=== PATIENT | female | born 1955 | race Caucasian/White ===

== ENCOUNTER 2017-10-20 16:20 | Outpatient (CLI) | payer MEDICARE, BC ==
[2017-10-20 17:35] LABS: Anion Gap 15 mmol/L (10-20); BUN (Urea Nitrogen) 15 mg/dL (9.8-20.1); Calc. Creatinine Clearance 0 mL/min (70-130); Calcium 9.8 mg/dL (7.8-10.44); Carbon Dioxide 25 mmol/L (22-29); Chloride 103 mmol/L (98-107); Estimated GFR-MDRD 52; Glucose 83 mg/dL (70-105); Potassium 3.9 mmol/L (3.5-5.1); Sodium 139 mmol/L (136-145)
[2017-10-20 17:38] LABS: Hemoglobin 12.4 g/dL (12.0-16.0); Mean Corpuscular Hemoglobin 31.3 pg (27.0-31.0); Mean Corpuscular Volume 92.2 fl (81.0-99.0); Mean Platelet Volume 12.2 fL (7.4-10.4); Platelet Count 139 thou/uL (130-400); RBC Distribution Width 12.9 % (11.5-14.5); Red Blood Cell (RBC) Count 3.95 mill/uL (4.20-5.40)
== END 2017-10-20 16:21 | disposition home or self-care (01) ==
LOC: LABBT 16:20
PROVIDERS: ATTEND Thoracic Surgery (Cardiothoracic Vascular Surgery)
DX: Z01.812 Encounter for preprocedural laboratory examination (principal); I73.9 Peripheral vascular disease, unspecified
CPT/HCPCS: 80048; 85027

== ENCOUNTER 2017-10-21 09:52 | Day surgery (SDC) | payer MEDICARE, BC ==
[2017-10-20 16:37] VITALS: BMI 24.9
[2017-10-21] MEDS ORDERED: Lidocaine 1% (PF) 30 ML VIAL ONE (10:24)
[2017-10-21] MEDS ORDERED: Iopamidol 370 76% 50 ML VIAL FS ONE (11:30)
[2017-10-21] MEDS ORDERED: Fentanyl 100 MCG/2 ML VIAL ONE ×2 (11:33→15:02)
[2017-10-21] MEDS ORDERED: Midazolam HCl 2 mg/2 ml Vial ONE (11:34)
[2017-10-21] MEDS ORDERED: Heparin 10,000 UNITS/1 ML VIAL ONE (12:01)
[2017-10-21] MEDS ORDERED: Protamine Sulfate 50 MG/5 ML VIAL ONE (12:10)
[2017-10-21] MEDS ORDERED: Fentanyl 100 MCG/2 ML VIAL SLOW IVP PRN (12:50)
[2017-10-21] MEDS ORDERED: Ondansetron HCl/PF 4 MG/2 ML Vial SLOW IVP PRN (12:50)
--- NOTE | 2017-10-21 13:01 | OP ---
DATE OF PROCEDURE: 10/21/2017 PREOPERATIVE DIAGNOSIS: Peripheral artery disease, right leg. PROCEDURE: Right and left femoral access with aortogram, iliofemoral and bilateral lower extremity r unoff. SURGEON: Dr. David Aviles ANESTHESIA: Sedation, Versed and fentanyl. CONTRAST: 48 mL. FLUOROSCOPY: 5.3 minutes. FINDINGS: The patient had complete occlusion of the right common iliac artery. She had mild atheros clerotic changes in the abdominal aorta below the renal arteries. She had apparent single renal nelson danyelle bilaterally with normal takeoff. Her left common iliac at the site of a previous stent was wide ly patent. The right and left external arteries appeared normal in caliber, although the right was s maller than the left, probably due to lack of pressurization. Both internal iliac arteries were harding nt without obvious disease. The right lower extremity runoff demonstrated normal superficial femoral artery, normal popliteal artery and 3-vessel runoff with some disease in the proximal peroneal arter y. The left leg demonstrated normal superficial femoral, popliteal, and anterior tibial and tibioper yung trunk were visualized and runoff below that level was not obtained. The patient tolerated the procedure well.
== END 2017-10-21 19:00 | disposition home or self-care (01) ==
LOC: CCL 09:52
PROVIDERS: ATTEND Thoracic Surgery (Cardiothoracic Vascular Surgery)
PROC: B40DYZZ Plain Radiography of Aorta and Bilateral Lower Extremity Arteries using Other Contrast (ICD-10-PCS; principal; 2017-10-21)
DX: I73.9 Peripheral vascular disease, unspecified (principal); Z79.01 Long term (current) use of anticoagulants; Z79.82 Long term (current) use of aspirin; Z79.899 Other long term (current) drug therapy; Z88.8 Allergy status to other drugs, medicaments and biological substances
CPT/HCPCS: 36245; 36247; 75625; 75716; 76942; 85347; 96374; C1769 ×2; 99152; 99153; J1644; J2001; J2250; J2720; J3010

== ENCOUNTER 2018-01-09 10:02 | Inpatient (IN) | payer MEDICARE, BC ==
[2018-01-09] MEDS ORDERED: Diltiazem 125 MG in Sodium Chloride 0.9% 100 ML IVPB SCH ×2 (10:30→14:32)
--- NOTE | 2018-01-09 10:38 | RAD ---
CHEST ONE VIEW: History: 62-year-old female with history of atrial fibrillation and syncope. Comparison: 02-25-06, 04-17-08 FINDINGS: Post underlying sternotomy. Right subclavian catheter and injection port. Heart size is within normal limits Minimal patchy parenchymal changes in the left lower lobe, primarily in the retrocardiac joseline on. The right chest appears clear. Patchy lytic changes involving the humeral head, incompletely eval uated on this study, but this is new when compared to the prior and exams. Post op changes of t he lower cervical spine. IMPRESSION: No cardiomegaly or overt edema. Patchy parenchymal changes in the left lower lobe raising concern for pneumonia, pneumonitis or even aspiration. Abnormal right humeral head with some patchy bony deminer alization/lytic bone changes. Consider nonemergent follow up plain film evaluation of the right shoul sudhir. POS: OFF
[2018-01-09] MEDS ORDERED: Piperacillin/Tazobactam 4.5 GM in Sodium Chloride 0.9% 100 ML IVPB SCH (11:00)
[2018-01-09 11:02] LABS: ALT (SGPT) 23 U/L (8-55); AST (SGOT) 26 U/L (5-34); Albumin 3.9 g/dL (3.5-5.0); Alkaline Phosphatase 95 U/L (40-150); Anion Gap 17 mmol/L (10-20); BUN (Urea Nitrogen) 34 mg/dL (9.8-20.1); Bilirubin, Total 0.5 mg/dL (0.2-1.2); CK (CPK) 21 U/L (29-168); Calc. Creatinine Clearance 0 mL/min (70-130); Calcium 9.5 mg/dL (7.8-10.44); Carbon Dioxide 20 mmol/L (22-29); Chloride 108 mmol/L (98-107); Estimated GFR-MDRD 33; Globulin 3.3 g/dL (2.4-3.5); Glucose 101 mg/dL (70-105); Potassium 3.7 mmol/L (3.5-5.1); Protein, Total 7.2 g/dL (6.0-8.3); Sodium 141 mmol/L (136-145)
[2018-01-09 11:05] LABS: Troponin I 0.084 ng/mL (< 0.028)
[2018-01-09 11:08] LABS: Band 12 % (5-11); Hemoglobin 11.7 g/dL (12.0-16.0); Lymphocytes 5 % (21-51); MDiff Complete? YES; Mean Corpuscular HGB CONC 34.2 g/dL (32.0-36.0); Mean Corpuscular Hemoglobin 31.1 pg (27.0-31.0); Mean Corpuscular Volume 90.7 fL (78.0-98.0); Mean Platelet Volume 11.7 fL (7.4-10.4); Monocytes 15 % (0-10); Neutrophil 68 % (42-75); PLT Morphology Comment Appears Decreased; Platelet Count 102 thou/uL (130-400); RBC Distribution Width 13.2 % (11.5-14.5); RBC Morphology Normal; Red Blood Cell (RBC) Count 3.77 mill/uL (4.20-5.40); White Blood Cell (WBC) Count 14.5 thou/uL (4.8-10.8)
--- NOTE | 2018-01-09 11:21 | CT ---
NONCONTRAST CT HEAD: DATE: 01/09/18. HISTORY: Syncope. Atrial fibrillation with RVR. Stage 3 breast cancer undergoing chemotherapy currently. COMPARISON: 02/21/06. FINDINGS: There are subtle scattered low-density areas in the periventricular white matter which are nonspecifi c but likely related to mild chronic small-vessel ischemic changes which have progressed from the leighton or study. There is no evidence of an acute cortical infarction, hemorrhage, mass effect, or midline shift. There is mild cerebral volume loss not unexpected for the patient's age. The ventricular sys tem is normal in size, shape, and position. Calvarial structures have a normal appearance and lytic or sclerotic osseous lesions are seen. There is mild mucosal thickening in the left sphenoid sinus. The remainder of the visualized paranas al sinuses as well as mastoid air cells are clear. IMPRESSION: 1. No acute intracranial abnormality is demonstrated. 2. Sinus disease involving the left sphenoid sinus. POS: [facility]
[2018-01-09 14:27] LABS: Free T4 (Free Thyroxine) 0.91 ng/dL (0.70-1.48)
[2018-01-09] MEDS ORDERED: Ondansetron ODT 4 MG TAB PO PRN (14:32)
[2018-01-09] MEDS ORDERED: Acetaminophen 325 MG TAB PO PRN (14:32)
[2018-01-09] MEDS ORDERED: Loratadine 10 MG TAB PO PRN (14:32)
[2018-01-09] MEDS ORDERED: Milk Of Magnesia 30 ML UDCUP PO PRN (14:32)
[2018-01-09] MEDS ORDERED: HYDROcodone/Acetaminophen 5/325 mg Tablet PO PRN (14:32)
[2018-01-09] MEDS ORDERED: Loperamide HCl 2 MG CAP PO PRN (14:32)
[2018-01-09] MEDS ORDERED: Eucerin (Mineral Oil/Petrolatum,White) 30 gm Jar TOP PRN (14:32)
[2018-01-09] MEDS ORDERED: Zolpidem Tartrate 5 MG TAB PO PRN (14:32)
[2018-01-09] MEDS ORDERED: Chloraseptic Spray 180 ml Bottle PO PRN (14:32)
[2018-01-09] MEDS ORDERED: Sodium Chloride 0.9% 1,000 ML IV SCH ×2 (14:32→14:45)
[2018-01-09] MEDS ORDERED: Artificial Tears 18 DROP/0.9 ML EA EYE PRN (14:32)
[2018-01-09] MEDS ORDERED: Sodium Chloride 0.65% Nasal 44 ML BOT EA NARE PRN (14:32)
[2018-01-09] MEDS ORDERED: cloNIDine 0.1 MG TAB PO PRN (14:32)
[2018-01-09] MEDS ORDERED: Mag-Al 1200 mg/1200 mg/30 ML UDCUP PO PRN (14:32)
[2018-01-09] MEDS ORDERED: Senokot 8.6 MG TAB PO PRN (14:32)
[2018-01-09] MEDS ORDERED: Ondansetron HCl/PF 4 MG/2 ML Vial IVP PRN (14:32)
[2018-01-09] MEDS ORDERED: Diabetic Tussin 200 MG/10 ML UDCUP PO PRN (14:32)
[2018-01-09] MEDS ORDERED: Digoxin 0.5 MG/2 ML AMP SLOW IVP SCH (14:45)
[2018-01-09] MEDS: Sodium Chloride 0.9% 1,000 ML IV SCH ×2 (14:45→23:19)
[2018-01-09 14:50] VITALS: BMI 21.7
[2018-01-09 15:07] LABS: Lactic Acid 1.4 mmol/L (0.5-2.2)
[2018-01-09 15:18] LABS: Troponin I 0.091 ng/mL (< 0.028)
[2018-01-09] MEDS ORDERED: Sodium Chloride 0.9% 500 ML IV SCH (15:30)
[2018-01-09] MEDS ORDERED: Lidocaine Viscous Sol 2% 15 ml UD Cup SSW PRN (15:31)
[2018-01-09] MEDS ORDERED: Multivit, Adult Inj 10 ML VIAL IV SCH (15:45)
[2018-01-09] MEDS ORDERED: Multivitamins, Adult 10 ML in Sodium Chloride 0.9% 1,000 ML IV SCH (17:00)
[2018-01-09] MEDS: Piperacillin/Tazobactam 3.375 GM in Sodium Chloride 0.9% 100 ML IVPB SCH (18:00)
[2018-01-09 18:43] LABS: Troponin I 0.068 ng/mL (< 0.028)
--- NOTE | 2018-01-09 19:02 | HP ---
PRIMARY CARE PHYSICIAN: Urbano Burns MD REASON FOR ADMISSION: Atrial fibrillation with rapid ventricular response, sepsis with acute organ d ysfunction, hypotension. HISTORY OF PRESENT ILLNESS: A 62-year-old female who has underlying history of stage III breast canc er and she is getting chemotherapy. Her primary oncologist is Dr. Den Mejia. Last chemotherapy was 2 weeks ago and the patient is planned for receiving another chemotherapy tomorrow. The patient's hu sband reports that since chemotherapy started, the patient is gradually going downhill. She has very poor appetite. She lost almost 50 pounds over the last 5 months. She gets sore mouth and because o f that she is not able to drink enough liquid as well. She also has very poor appetite. For the t several days, the patient was having cough productive of scant amount of sputum and subsequently ch anged to yellow color. The patient's noticed that the patient was gradually going downhill a nd she was intermittently confused for the last 4-5 days. Mostly, the patient remains at home and th at is why the patient's was not able to take care of her, because he has to go for job most o f the time during daytime, but as the patient's condition was deteriorating and that is why the pat wells's took off from work and he was staying for the last couple of days at home. He was tryin g to bring her in emergency room 3-4 days ago, but the patient was not willing to do that. Last nigh t, the patient woke up in the middle of night and she went to bathroom and she collapsed. The patilillian t's helped her to bring her back to bed. This morning, the patient had another episode of fa ll and that is why the patient's decided that to go to emergency room for evaluation. The jae sosa was not having any fever. She denies any diarrhea. She denies any UTI symptoms, but the pat wells did not make any significant urine output since morning. She denies any palpitation. She denies any chest pain. She denies any orthopnea, PND, or leg swelling. She does have history of COPD and s he is using inhalers. She does have history of atrial fibrillation and she was on chronic anticoagul ation therapy as well as Cartia medication, which she did not took today. When she arrived to emergency room, she was hypotensive as well as in atrial fibrillation with RVR wi th a pulse of 140. She was afebrile. The patient was given IV fluid and Cardizem bolus, and Cardize m drip was started, and subsequently her rate was under control. By the time I saw in ER, patient's rate was in 110s as well as her blood pressure improved to 102 systolic. The patient was saturating 94% on room air and 100% with 2 liter nasal cannula. The patient was given Zosyn and levofloxacin, a nd subsequently the patient was admitted to telemetry floor. After admission to telemetry floor, the patient had an episode of hypotension when she tried to stand up. That responded very quickly with a bolus fluid. We held Cardizem drip and digoxin was given fo r her rapid heart rate. At that time, the patient was asymptomatic. REVIEW OF SYSTEMS: The following complete review of systems was negative, unless otherwise mentioned in the HPI or below: Constitutional: Weight loss or gain, ability to conduct usual activities. Sk in: Rash, itching. Eyes: Double vision, pain. ENT/Mouth: Nose bleeding, neck stiffness, pain, te nderness. Cardiovascular: Palpitations, dyspnea on exertion, orthopnea. Respiratory: Shortness of breath, wheezing, cough, hemoptysis, fever, or night sweats. Gastrointestinal: Poor appetite, abdo chinyere pain, heartburn, nausea, vomiting, constipation, or diarrhea. Genitourinary: Urgency, frequen cy, dysuria, nocturia. Musculoskeletal: Pain, swelling. Neurologic/Psychiatric: Anxiety, depressi on. Allergy/Immunologic: Skin rash, bleeding tendency. Please see my HPI for pertinent positive and negative. All other review of systems reviewed and nega tive except as mentioned in the HPI. PAST MEDICAL HISTORY: Atrial fibrillation, chronic anticoagulation, COPD, stage III breast cancer, p eripheral neuropathy, hypertension, dyslipidemia, fibromyalgia. PAST SURGICAL HISTORY: MediPort placement, CABG x2, angiography of lower extremity with runoff, left fifth toe amputation, right shoulder surgery. PAST PSYCHIATRIC HISTORY: Anxiety disorder, but not on specific medication. SOCIAL HISTORY: The patient is and lives at home with her . She is a former smoker. She quit smoking about 9 months ago, otherwise she used to smoke 1 pack per day for 45 years. FAMILY HISTORY: No strong family history of premature coronary artery disease, stroke, or cancer. ALLERGIES: METOPROLOL and IMDUR. CURRENT HOME MEDICATIONS: The patient did not bring her home medication, but based on our hospital r ecord from 10/2017. The patient was on following medications: Combivent inhaler twice daily, Symbic ort 2 puff inhalation b.i.d., Lyrica 225 mg b.i.d., Lipitor 40 mg p.o. at bedtime, aspirin 81 mg p.o. daily, Eliquis 2.5 mg p.o. b.i.d., omeprazole 40 mg p.o. daily, tizanidine 4 mg p.o. b.i.d., Cartia XT 240 mg p.o. at bedtime. EMERGENCY ROOM COURSE: The patient has received Cardizem bolus, Cardizem drip, Zosyn, levofloxacin, and IV fluid. PHYSICAL EXAMINATION: VITAL SIGNS: On arrival, blood pressure 86/63, pulse 140, respiratory rate 17, temperature 98.5, sat uration 94% on room air. Blood pressure improved to 113/61 after fluid and heart rate improved to 11 0, saturation 100% with 2-liter nasal cannula. GENERAL: The patient appears chronically ill, alopecia, tachycardic, hypotensive, emaciated. HEAD: Normocephalic, atraumatic. EYES: Pupils round, reactive to light. Extraocular muscle intact. ENT: Oropharynx within normal limit. Stomatitis noted. Dry mucous membrane. No oral lesion, no ph aryngeal erythema, no exudate. NECK: Supple. No JVD, no thyromegaly, no meningeal signs of irritation. LUNGS: Left basal rales noted. No accessory muscles of respiration in use. CARDIAC: S1, S2 irregularly irregular. No murmur elicited. No gallop, no rub. ABDOMEN: Soft. Bowel sounds present. Nontender, nondistended. No organomegaly, no mass, no suprap ubic tenderness. BACK: Unremarkable. No CVA tenderness. EXTREMITIES: Upper extremity: Passive movement of all joints are normal. Lower extremity: Trace e sg noted. Good distal pulsation. SKIN: No skin rash. HEMATOLOGICAL SYSTEM: No lymphadenopathy. PSYCHIATRIC: Normal affect. SIGNIFICANT LABORATORY DATA: EKG showing atrial fibrillation with RVR, nonspecific ST-T changes. Ch est x-ray: Left lower lobe infiltration. CT brain based on my review, no acute intracranial process . CBC: WBC 14.5, hemoglobin 11.7, platelet 102 with bandemia. BMP: Sodium 141, potassium 3.7, chl oride 108, carbon dioxide 20, anion gap 17, BUN 34, creatinine 1.58, glucose 101, calcium 9.5. LFT: AST 26, ALT 23, alkaline phosphatase 95, albumin 3.9, CK 21, CK-MB 1.0. Troponin I 0.084, then 0.09 1. TSH is less than 1889. Free T3 less than 1. Free T4 is 0.91. Cortisol is 13.40. ASSESSMENT AND PLAN: 1. Syncope, most likely explained by her hypotension and atrial fibrillation with rapid ventricular response. We will monitor on telemetry floor. We will obtain echocardiography. We will stabilize h emodynamically. 2. Sepsis with acute organ dysfunction. This patient has left lower lobe pneumonia. She has acute kidney failure, demand ischemia of myocardium, and hypotension. The patient is on broad-spectrum ant ibiotic therapy with Zosyn and Levaquin. We will follow up on culture result. The patient will cont inue to get IV fluid as well and based on culture result, we will decide next antibiotic therapy. 3. Acute kidney failure. The patient will be given IV fluid. This is because of prerenal etiology from her poor p.o. intake as well as sepsis. We will avoid nephrotoxin agent and we will repeat BMP tomorrow. 4. Demand ischemia of myocardium, likely related with sepsis as well as atrial fibrillation with rap id ventricular response. We will do serial cardiac enzymes x3. Echocardiography will be done. Aspi rin will be continued. Cardiology already consulted. 5. Atrial fibrillation with rapid ventricular response. The patient's rate was controlled with Card izem drip, but because of low blood pressure, the patient is not going to tolerate that medication. We will give her digoxin 0.25 mg IV one-time dose and then we will repeat if needed. Cardiology will be consulted. Echocardiography will be done. The patient will continue Eliquis 2.5 mg p.o. b.i.d., aspirin 81 mg p.o. daily. If blood pressure permits, then we will continue with the Cardizem drip f or rate control. For further decision, we will defer to Cardiology. 6. Metabolic acidosis due to sepsis and dehydration. 7. Anemia of chronic disease due to breast cancer as well as chemotherapy. We will monitor CBC. 8. Thrombocytopenia likely due to chemotherapy. We will monitor platelet count and because of low p latelet count, we will avoid heparin product. 9. Sick euthyroid syndrome. The patient has low TSH and low free T3, but normal T4. 10. Sepsis with hypotension. The patient is given bolus fluid and blood pressure improved. Random cortisol is in normal level, but we will continue with Solu-Medrol 40 mg IV q.6 hourly. 11. Left lower lobe pneumonia, community acquired. The patient will be given broad-spectrum antibio tic therapy with Zosyn and Levaquin. We will follow up on culture result. The patient will be given DuoNeb therapy on p.r.n. basis. We will continue with Solu-Medrol 40 mg IV q.6 hourly, Mucinex 600 mg twice daily. 12. History of breast cancer. The patient is planned for chemotherapy tomorrow, but she cannot have chemotherapy because of sepsis and atrial fibrillation with rapid ventricular rate. She needs to re schedule outpatient chemotherapy after discharge with Dr. Den Mejia. 13. Chronic obstructive pulmonary disease with mild exacerbation. The patient will be given DuoNeb therapy q.6 hourly p.r.n., Dulera two puff inhalation b.i.d., Solu-Medrol 40 mg IV q.6. hourly, and t he patient is already on empiric antibiotic therapy. 14. Gastroesophageal reflux disease. We will continue Protonix 40 mg p.o. daily. 15. Dyslipidemia. Continue Lipitor 40 mg p.o. at bedtime and we will check lipid profile tomorrow m justin. 16. Peripheral neuropathy. We will continue Lyrica 225 mg p.o. b.i.d. The patient reports that wit hout that medication, she cannot sleep. 17. Deep venous thrombosis prophylaxis. The patient is already on Eliquis therapy. 18. Gastrointestinal prophylaxis, Protonix 40 mg p.o. daily. 19. Stomatitis. We will give her folic acid, vitamin B12, Theragran, as well as multivitamin throug h the IV fluid. 20. Protein-calorie malnutrition, moderate. The patient will need nutritional supplement with Ensur e t.i.d. 21. Coronary artery disease. The patient is already on aspirin therapy, statin therapy. CODE STATUS: The patient is FULL CODE. The patient's is surrogate decision maker. Disposition plan based on clinical course. We are expecting patient's stay in hospital more than 2 m idnights. Plan of care extensively discussed with the patient's at bedside in the emergency room. The patient was also evaluated at the telemetry floor after admission.
[2018-01-09] MEDS: Mometasone/Formoterol 120 PUFF INHALER INH SCH (20:17)
[2018-01-09] MEDS: Pregabalin 75 MG CAP PO SCH (20:37)
[2018-01-09] MEDS: Atorvastatin Calcium 40 MG TAB PO SCH (20:38)
[2018-01-09] MEDS: guaiFENesin ER 600 MG TAB PO SCH (20:39)
[2018-01-09] MEDS ORDERED: Atorvastatin Calcium 40 MG TAB PO SCH (21:00)
[2018-01-09] MEDS: Apixaban 2.5 MG TAB PO SCH (21:50)
[2018-01-10] MEDS: Piperacillin/Tazobactam 3.375 GM in Sodium Chloride 0.9% 100 ML IVPB SCH ×5 (00:20→23:15)
[2018-01-10 06:00] LABS: ALT (SGPT) 20 U/L (8-55); AST (SGOT) 20 U/L (5-34); Albumin 3.1 g/dL (3.5-5.0); Alkaline Phosphatase 80 U/L (40-150); Anion Gap 15 mmol/L (10-20); BUN (Urea Nitrogen) 23 mg/dL (9.8-20.1); Bilirubin, Total 0.4 mg/dL (0.2-1.2); Calc. Creatinine Clearance 48 mL/min (70-130); Calcium 8.6 mg/dL (7.8-10.44); Carbon Dioxide 17 mmol/L (22-29); Chloride 115 mmol/L (98-107); Estimated GFR-MDRD 45; Globulin 2.7 g/dL (2.4-3.5); Glucose 140 mg/dL (70-105); Potassium 4.2 mmol/L (3.5-5.1); Protein, Total 5.8 g/dL (6.0-8.3); Sodium 143 mmol/L (136-145)
[2018-01-10] MEDS ORDERED: Acetaminophen/Codeine 30-300mg Tablet PO PRN (06:04)
[2018-01-10] MEDS ORDERED: Diltiazem 125 MG in Sodium Chloride 0.9% 100 ML IVPB PRN (06:06)
[2018-01-10] MEDS ORDERED: Multivit, Adult Inj 10 ML VIAL IV SCH (06:15)
[2018-01-10] MEDS: Sodium Chloride 0.9% 1,000 ML IV SCH (06:37)
[2018-01-10] MEDS: Dextrose 5 %-0.45 % NaCl 1,000 ML IV SCH (06:42)
[2018-01-10 07:29] LABS: Band 18 % (5-11); Hemoglobin 8.6 g/dL (12.0-16.0); Lymphocytes 3 % (21-51); MDiff Complete? YES; Mean Corpuscular HGB CONC 32.8 g/dL (32.0-36.0); Mean Corpuscular Hemoglobin 30.8 pg (27.0-31.0); Mean Corpuscular Volume 93.8 fL (78.0-98.0); Monocytes 2 % (0-10); Neutrophil 77 % (42-75); PLT Morphology Comment Appears Decreased; Platelet Count 97 thou/uL (130-400); RBC Distribution Width 13.1 % (11.5-14.5); RBC Morphology 1; Red Blood Cell (RBC) Count 2.79 mill/uL (4.20-5.40); White Blood Cell (WBC) Count 11.1 thou/uL (4.8-10.8)
[2018-01-10] MEDS: Mometasone/Formoterol 120 PUFF INHALER INH SCH ×2 (07:58→19:49)
--- NOTE | 2018-01-10 08:46 | CON ---
DATE OF CONSULTATION: 01/09/2018 ROOM NUMBER: [id number] PRIMARY CARE PHYSICIAN: Urbano Burns M.D. ONCOLOGIST: Den Mejia M.D. PRIMARY MANAGED CARE ANALYST: Dr. Leone. The patient's primary sheep killer in [place] is going to be Dr. Marques. REFERRAL DOCTOR: Dr. Owens. REASON FOR CARDIOLOGY CONSULTATION: AFib with RVR. HISTORY OF PRESENT ILLNESS: Ms. Duncan is a 62 years old female with a significant history of left lung cancer in the left stage III breast cancer and since 2018 with chemotherapy, and history of coronary artery disease with a history of a CABG x2, peripheral arterial disease with bilateral lower bypass 07/2017, and paroxysmal atrial fibrillation and COPD. The patient was diagnosed with a left lung cancer and stage III left breast cancer in 2018. She has finished 2 sets of chemotherapy and has almost started her third chemotherapy from tomorrow. Since patient started the chemotherapy, the patient 's condition started deteriorate. The patient's appetite also decreased and she became more weaker. According to the patient, she could not move well since last week. This morning, she fell twice at home. She knew she was falling. Due to those reasons and severe weakness, patient's called the EMS and the patient was transferred to the emergency department at [facility] for further evaluation and treatment. At the ER, the patient was found to have atrial fibrillation with rapid ventricular response with pauses up to 140s. The diltiazem drip was initiated at the ER. At that time, patient's vital signs were stable with O2 sat 94% with room air. When she was tried to get up to the bedside commode, the patient has dizziness and happened to have low blood pressure. After this episode, the patient received normal saline bolus which stabilized the patient's blood pressure at this time. During the Cardiology consult assessment, patient denies dizziness, lightheadedness, palpitation or fluttering in her chest, shortness of breath, chest pain or discomfort in her chest or any other cardiac complaints except the patient severe weakness. The patient converted back to sinus rhythm at 1717 on 01/07/2018. Cardizem drip was discontinued due to the hypotension. At this moment, the patient is on the digoxin. She received the digoxin 0.25mg IV push. She has maintained the sinus rhythm since then. The patient has seen Dr. Leone for history of coronary artery disease and atrial fibrillation. The patient has had several echocardiograms at Dr. Leone' s office; last one was in 2016 per patient. She was told that the patient's ejection fraction was stable at that time. The patient's CABG x2 [place] [address] Aviles and also patient has status post AFRO with runoff with status post bilateral lower extremity bypass in about 5 weeks ago. PAST MEDICAL HISTORY: 1. Paroxysmal atrial fibrillation with Eliquis 5 mg twice a day. 2. Chronic obstructive pulmonary disease. 3. Left lung cancer in stage III. 4. Left breast cancer since 2018. 5. Peripheral neuropathy. 6. Hypertension. 7. Dyslipidemia. 8. Fibromyalgia. PAST SURGICAL HISTORY: 1. CABG x2 in 2006. 2. Also with status post bilateral lower extremity bypass in 10/2017. However , according to Dr. Aviles's note in 10/2017 shows patient has bilateral aortogram with runoff; however, there is no obvious disease in the bilateral lower extremities. 3. Left fifth toe amputation in 2012, right shoulder surgery in 2016, after status post fall. The patient had a cholecystectomy in 2006. 4. Disk replacement in 2016, back surgery x2, first one in 1976 and in 1977. PSYCHIATRIC HISTORY: Anxiety. ALLERGIES: The patient is allergic to Imdur, but she is not allergic to metoprolol. CURRENT MEDICATIONS: Aspirin 81 mg once a day, tizanidine 4 mg twice a day, Tylenol No. 3 one tablet every 4 hours as needed, Lyrica 225 mg twice a day, Cartia, diltiazem hydrochloride 240 mg once a day, atorvastatin 40 mg once a day , omeprazole 40 mg once a day, hydrocodone 10/325 one tablet twice a day as needed, Eliquis 5 mg twice a day, albuterol 1 puff 4 times a day, 1 puff twice a day, Chantix 1 mg p.o. once a day. FAMILY HISTORY: There is significant history of cancer in paternal or maternal side. SOCIAL HISTORY: The patient is , lives with her . They have 3 children who are grown up and live well. She is under disability since 1977. She is a former smoker. She quit in 09/2016. She used to smoke half pack to 1 pack a day. She denies any illicit or EtOH abuse. REVIEW OF SYSTEMS: Twelve-point review of systems was negative, unless mentioned in the HPI or below. Prior to this admission, the patient walked without any help or walker or cane. She wears upper and lower dentures at home. PHYSICAL EXAMINATION: VITAL SIGNS: Blood pressure 104/58, pulse is 67 with sinus rhythm, respiratory rate 14, O2 sat 94% with 2 liters of nasal cannula. GENERAL: The patient well-developed, but undernourished. The patient is without any acute distress. HEAD: Normocephalic, atraumatic, she wakes up. EYES: Extraocular muscle movement intact. ENT AND MOUTH: Nose mucosa moist. Mouth mucosa is dry. There are also skin lesions on the lip and into her mouth. NECK: No JVD. Neck supple and normal range of motion. LUNGS: Clear to auscultate bilaterally, but very diminished at the bases. CARDIOVASCULAR: Regular rate and rhythm, normal S1, S2. There is no S3, S4. No significant murmur, hives, thrill, bruit, or rub noted. Carotid pulses are present without bruit or thrill. There have 2+ pulses in the bilateral lower extremities, except right popliteal pulses +1. No edema in the lower extremities. ABDOMEN: Soft, nontender or mass to palpate, nondistended. Bowel sounds are present, but very diminished. MUSCULOSKELETAL: The patient able to move all extremities. The patient denies any calf tenderness, but very weak. SKIN: There is skin lesion in the right forearm due to the history of fall today. Other than that the skins are warm and dry. NEUROLOGIC: The patient alert, oriented x4, awake, normal affect. Nonfocal. PSYCHIATRIC: Mood and affect are normal. EKG: A 12-lead EKG in the ER shows patient's atrial fibrillation with a rapid ventricular response with heart rate of 118. Then the patient is going to convert back to sinus rhythm at 1717 hours on 01/09/2018. WBC 14.5, hemoglobin 11.7, hematocrit 34.2, platelets 102. Sodium 141, potassium 3.7, BUN 34, creatinine 1.58, glucose 101, lactic acid is 1.4, AST 26, ALT 23, creatinine kinase 21. CK-MB is at 1.0. Troponin, 0.084, 0.091, and 0.068. TSH is 0.1889 , T3 is less than 1.0, T4 0.91. Cortisol 13.4. IMAGING: A chest x-ray showed a patchy parenchymal change in the left lower lobe and possible due to pneumonia and brain CT showing no acute intracranial abnormality and angiogram with runoff shows normal blood flow to the bilateral lower extremities. ASSESSMENT AND PLAN: 1. Atrial fibrillation with rapid ventricular response. The patient converted back to the sinus rhythm at 1500 hours today. The patient is on Eliquis 2.5 mg twice a day. At this moment, the patient is not on any antiarrhythmic medication or her beta-elvia at this moment. Once the patient's vital signs are stable, we like to resume either diltiazem which the patient was on prior to this admission or any other antiarrhythmic medication for this patient. We would like to continue to monitor on telemetry. 2. Elevated troponin, this is possibly due to demand ischemia due to the history of atrial fibrillation with RVR today. No EKG change at this moment, we would like to continue to monitor. 3. Dizziness. Orthostatic hypotension or due to the dehydration. The patient' s vital signs are stable with normal saline at 150 mL per an hour with vitamin. We would like to continue to monitor and we are going to discontinue some IV fluid intake if patient developed any heart failure symptoms such as wheezing, shortness of breath or abdominal bloating. We would like to continue to monitor. 4. Hypotension. The patient's blood pressure is stable with continuous normal saline fluid. We would like to continue to monitor. 5. Coronary artery disease with a history of a CABG x2 in 2006. The patient is stable at this moment, we would like to continue to monitor. She is not on beta-elvia or TANYA inhibitor at this moment due to the hypotensive. 6. Hyperlipidemia. Once the patient's condition is stable, we would like to resume the Lipitor 40 mg once a day. 7. The TSH level was 0.1889 which is lower than the normal level. We like to defer this to the patient's primary care doctor. 8. Acute kidney injury insufficiency, possible due to the dehydration. Since the patient receiving normal saline fluid, we would like to continue to monitor the patient's kidney function with the morning blood work. 9. Thrombocytopenia. The patient's platelet level was 102 today. She is on Eliquis 2.5 mg twice a day for history of atrial fibrillation. Aspirin 81 mg was stopped. Even though is a low dose, may affect to increase the risk of the bleeding. 10. Left lower lobe pneumonia. The patient on antibiotic which was managed by the primary care doctor. 11. History of left lung cancer and left stage III breast cancer. 12. Chronic obstructive pulmonary disease exacerbation. The patient's condition is stable at this moment. We would like to continue to monitor. The patient may require any breathing treatment in the future. Thank you very much for allowing the Cardiology service to participate in care of this patient. We will follow along with the patient's care team and make further recommendation as appropriate. ALONDRAD
[2018-01-10] MEDS ORDERED: Multivitamins, Adult 10 ML in Dextrose 5 %-0.45 % NaCl 1,000 ML IV SCH (09:00)
--- NOTE | 2018-01-10 09:10 | PDOC.PN ---
- Subjective Encounter Start Date: 01/10/18 Encounter Start Time: 07:40 -: old records requested/rev pt is much better today, no fever, less dyspnea, she converted to sinus yesterday, off cardizem drip, - Objective Resuscitation Status: Resuscitation Status FULL:Full Resuscitation MAR Reviewed: Yes Vital Signs & Weight: Vital Signs (12 hours) Temp Pulse Resp BP Pulse Ox 01/10/18 07:59 98 01/10/18 07:58 63 16 94 L 01/10/18 07:32 98.1 F 54 L 16 130/59 L 100 01/10/18 04:00 97.3 F L 59 L 18 133/62 95 Weight Weight 138 lb 12.8 oz Result Diagrams: 01/10/18 04:43 01/10/18 04:43 EKG Reviewed by me: Yes (nsr) Phys Exam - Physical Examination Constitutional: NAD HEENT: PERRLA, moist MMs, sclera anicteric Neck: no JVD, supple Respiratory: no wheezing, no rhonchi left base rales Cardiovascular: RRR, no significant murmur, no rub Gastrointestinal: soft, non-tender, no distention, positive bowel sounds Musculoskeletal: no edema, pulses present Neurological: non-focal, normal sensation Lymphatic: no nodes Psychiatric: normal affect, A&O x 3 Skin: no rash, normal turgor Dx/Plan (1) Acute kidney failure Status: Acute Comment: improving, due to prerenal and sepsis (2) Atrial fibrillation with RVR Code(s): I48.91 - UNSPECIFIED ATRIAL FIBRILLATION Status: Resolved Comment: converted to sinus, she has PAF (3) COPD exacerbation Code(s): J44.1 - CHRONIC OBSTRUCTIVE PULMONARY DISEASE W (ACUTE) EXACERBATION Status: Acute Comment: improving (4) Community acquired bacterial pneumonia Code(s): J15.9 - UNSPECIFIED BACTERIAL PNEUMONIA Status: Acute (5) Demand ischemia Code(s): I24.8 - OTHER FORMS OF ACUTE ISCHEMIC HEART DISEASE Status: Acute (6) Sepsis with acute organ dysfunction Code(s): A41.9 - SEPSIS, UNSPECIFIED ORGANISM; R65.20 - SEVERE SEPSIS WITHOUT SEPTIC SHOCK Status: Acute (7) Sepsis with hypotension Code(s): A41.9 - SEPSIS, UNSPECIFIED ORGANISM; I95.9 - HYPOTENSION, UNSPECIFIED Status: Acute Comment: hypotension resolved (8) Thrombocytopenia Code(s): D69.6 - THROMBOCYTOPENIA, UNSPECIFIED Status: Acute (9) Anemia of chronic disease Code(s): D63.8 - ANEMIA IN OTHER CHRONIC DISEASES CLASSIFIED ELSEWHERE Status : Chronic (10) Breast cancer Status: Chronic Comment: on chemotherapy (11) Chronic anticoagulation Code(s): Z79.01 - SHIPPING AND RECEIVING SUPERVISOR (CURRENT) USE OF ANTICOAGULANTS Status: Chronic (12) Ex-smoker for less than 1 year Code(s): Z78.9 - OTHER SPECIFIED HEALTH STATUS Status: Chronic (13) Stomatitis and mucositis Code(s): K12.1 - OTHER FORMS OF STOMATITIS; K12.30 - ORAL MUCOSITIS (ULCERATIVE) , UNSPECIFIED Status: Acute Comment: due to chemotherapy - Plan cont current plan of care, plan discussed w/ family, continue antibiotics, PT/OT , respiratory therapy * change IVF dex with 1/2 ns with kcl at 50 ml per hour * echo pending * restart cartia xt her home meds * start PT * follow culture * repeat labs tomorrow * medication reviewed as below * symptomatic treatment * discussed with family. * multivitamins with IVF as well as orally Review of Systems - Review of Systems Constitutional: negative: fever, chills, sweats, weakness, malaise, other Respiratory: Cough, SOB with Excertion. negative: Dry, Shortness of Breath, Hemoptysis, Pleuritic Pain, Sputum, Wheezing Cardiovascular: negative: chest pain, palpitations, orthopnea, paroxysmal nocturnal dyspnea, edema, light headedness, other Gastrointestinal: negative: Nausea, Vomiting, Abdominal Pain, Diarrhea, Constipation, Melena, Hematochezia, Other Genitourinary: negative: Dysuria, Frequency, Incontinence, Hematuria, Retention , Other Musculoskeletal: negative: Neck Pain, Shoulder Pain, Arm Pain, Back Pain, Hand Pain, Leg Pain, Foot Pain, Other Skin: negative: Rash, Lesions, Antoni, Bruising, Other Neurological: negative: Weakness, Numbness, Incoordination, Change in Speech, Confusion, Seizures, Other - Medications/Allergies Allergies/Adverse Reactions: Allergies Allergy/AdvReac Type Severity Reaction Status Date / Time isosorbide [From Imdur] Allergy Verified 01/09/18 21:06 Medications: Current Medications Acetaminophen (Tylenol) 650 mg PO Q4H PRN PRN Reason: Headache/Fever or Pain Acetaminophen/Codeine Phosphate (Tylenol #3) 1 tab PO Q4H PRN PRN Reason: Pain Hydrocodone Bitart/Acetaminophen ([place] 5/325) 1 tab PO Q4H PRN PRN Reason: Moderate Pain (4-6) Al Hydroxide/Mg Hydroxide (Maalox) 30 ml PO Q6H PRN PRN Reason: Heartburn or Indigestion Albuterol/Ipratropium (Duoneb) 3 ml NEB [id number] PRN PRN Reason: SOB &/or Wheezing Apixaban (Eliquis) 2.5 mg PO BID [facility] Last Admin: 01/09/18 21:50 Dose: 2.5 mg Artificial Tears (Tears Naturale) 0 drop EA EYE PRN PRN PRN Reason: Dry Eyes Atorvastatin Calcium (Lipitor) 40 mg PO HS [facility] Last Admin: 01/09/18 20:38 Dose: 40 mg Clonidine (Catapres) 0.1 mg PO Q4H PRN PRN Reason: Systolic BP > 180 Cyanocobalamin (Vitamin B-12) 1,000 mcg PO DAILY [facility] Diltiazem HCl (Cardizem Cd) 240 mg PO HS [facility] Folic Acid (Folvite) 1 mg PO DAILY [facility] Guaifenesin (Robitussin Sf) 200 mg PO Q4H PRN PRN Reason: Cough Guaifenesin (Mucinex) 600 mg PO Q12HR [facility] Last Admin: 01/09/18 20:39 Dose: 600 mg Levofloxacin 500 mg/ Device 100 mls @ 100 mls/hr IVPB Q24HR [facility] Piperacillin Sod/Tazobactam (Sod 3.375 gm/ Sodium Chloride) 100 mls @ 200 mls/ hr IVPB Q6HR [facility] Last Admin: 01/10/18 06:24 Dose: 100 mls Dextrose/Sodium Chloride (D5 1/2 Ns) 1,000 mls @ 50 mls/hr IV .Q20H [facility] Last Admin: 01/10/18 06:42 Dose: 1,000 mls Diltiazem HCl 125 mg/ Sodium (Chloride) 125 mls @ 5 mls/hr IVPB INF PRN; Protocol; 5 MG/HR PRN Reason: for afib with RVR >110 Multivitamins 10 ml/ Dextrose/ (Sodium Chloride) 1,010 mls @ 50 mls/hr IV DAILY [facility] Stop: 01/11/18 05:11 Iron/Minerals/Multivitamins (Theragran M) 1 tab PO DAILY [facility] Lidocaine HCl (Xylocaine 2% Viscous) 15 ml SSW Q6H PRN PRN Reason: Mouth Irritation Last Admin: 01/10/18 07:37 Dose: 15 ml Loperamide HCl (Imodium) 2 mg PO PRN PRN PRN Reason: Diarrhea/Loose Stools Loratadine (Claritin) 10 mg PO DAILYPRN PRN PRN Reason: Sinus Symptoms Magnesium Hydroxide (Milk Of Magnesium) 30 ml PO DAILYPRN PRN PRN Reason: Constipation Methylprednisolone Sodium Succinate (Solu-Medrol) 20 mg IVP Q8HR [facility] Mineral Oil/White Petrolatum (Eucerin Cream) 0 gm TOP BIDPRN PRN PRN Reason: Dry Skin Mometasone Furoate/Formoterol Fumar (Dulera 200 Mcg/5 Mcg Inhaler) 2 puff INH BID-RT [facility] Last Admin: 01/10/18 07:58 Dose: 2 puff Ondansetron HCl (Zofran Odt) 4 mg PO Q6H PRN PRN Reason: Nausea/Vomiting Ondansetron HCl (Zofran) 4 mg IVP Q6H PRN PRN Reason: Nausea/Vomiting Pantoprazole Sodium (Protonix) 40 mg PO DAILY [facility] Phenol (Chloraseptic [place] 180 Ml Bot) 0 ml PO PRN PRN PRN Reason: Sore Throat Pregabalin (Lyrica) 225 mg PO BID [facility] Last Admin: 01/09/18 20:37 Dose: 225 mg Saccharomyces Boulardii (Florastor) 250 mg PO DAILY [facility] Senna (Senokot) 2 tab PO HSPRN PRN PRN Reason: Constipation Sodium Chloride ([place] Nasal [place] 0.65%) 0 ml EA NARE QIDPRN PRN PRN Reason: Nasal Congestion Sodium Chloride (Flush - Normal Saline) 10 ml IVF Q12HR [facility] Last Admin: 01/09/18 20:39 Dose: 10 ml Sodium Chloride (Flush - Normal Saline) 10 ml IVF PRN PRN PRN Reason: Saline Flush Tizanidine HCl (Zanaflex) 4 mg PO BID [facility] Zolpidem Tartrate (Ambien) 5 mg PO HSPRN PRN PRN Reason: Insomnia
[2018-01-10] MEDS: Apixaban 2.5 MG TAB PO SCH ×2 (09:38→20:56)
[2018-01-10] MEDS: Multivitamin W/ Minerals 1 TAB PO SCH (09:38)
[2018-01-10] MEDS: Cyanocobalamin (Vitamin B-12) 1,000 MCG TAB PO SCH (09:38)
[2018-01-10] MEDS: guaiFENesin ER 600 MG TAB PO SCH ×2 (09:38→21:37)
[2018-01-10] MEDS: Folic Acid 1 MG TAB PO SCH (09:38)
[2018-01-10] MEDS: tiZANidine HCl 4 MG TAB PO SCH ×2 (09:39→20:25)
[2018-01-10] MEDS: Saccharomyces boulardii 250 MG CAP PO SCH (09:39)
[2018-01-10] MEDS: Pregabalin 75 MG CAP PO SCH ×2 (09:39→20:25)
[2018-01-10 14:39] LABS: Bilirubin Negative (Negative); Blood, Urine Negative (Negative); Clarity CLOUDY (Clear); Glucose, Urine (Dipstick) Negative (Negative); Leukocyte Small (Negative); Nitrite Negative (Negative); Protein, Urine (Dipstick) Negative (Neg-Trace); Specific Gravity, Urine 1.021 (1.002-1.036); Urobilinogen 0.2 mg/dL (0.2-1.0)
[2018-01-10 14:43] LABS: Hyaline Casts/LPF 4-6 HYALINE CAST LPF (0-3 Hyaline); Pathc Cast-AUWi Flag 0.72 (0-2.49)
[2018-01-10 14:57] LABS: Bacteria/HPF Rare-Few HPF (None Seen); RBC/HPF 0-3 HPF (0-3); Yeast-All Forms None Seen HPF (None Seen)
--- NOTE | 2018-01-10 16:39 | PDOC.CTH ---
<Melody Ahmadi - Last Filed: 01/10/18 16:37> Cardiology Progress Note - Subjective The pt seen and examined. No overnight events. No cardiac complaints. She feels better and no more dizziness or lightheadedness. - Objective Vital Signs Temp Pulse Resp BP Pulse Ox 01/10/18 16:31 98.1 F 55 L 16 138/78 100 01/10/18 12:10 97.8 F 58 L 16 110/56 L 97 01/10/18 08:00 97.8 F 58 L 16 100 01/10/18 07:59 98 01/10/18 07:58 63 16 94 L 01/10/18 07:32 98.1 F 54 L 16 130/59 L 100 Admit Weight 138 lb 12.8 oz Weight 138 lb 12.8 oz - Physical Examination General/Neuro: alert & oriented x3 Neck: no JVD present Lungs: CTA (diminished at bases) Heart: RRR Abdomen: soft Extremities: other: (No edema) - Telemetry Telemetry Rhythm: SR - Labs Result Diagrams: 01/10/18 04:43 01/10/18 04:43 Troponin/CKMB CK-MB (CK-2) 1.0 ng/mL (0-6.6) 01/09/18 10:26 Troponin I 0.068 ng/mL (< 0.028) H 01/09/18 18:07 - Assessment/Plan 1. Afib with RVR - Converted back to SR at 1717 on 01/09/18; Remains in SR. On Eliquis 2.5mg BID; May resume Diltiazem when her VS is stable 2. Dizziness - stable with stable BP. 3. PNA - on IV antibiotic; managed by PCP 4. hx of Lt lung and stage 3 Lt breast ca - 5. HTN - stable 6. Hyperlipidemia - On statin 7. Anemia - Hgb 8.6 today MAR reviewed Review of Systems - Review of Systems Constitutional: reports: weakness EENTM: reports: no symptoms reported Respiratory: reports: no symptoms reported Cardiac (ROS): reports: no symptoms reported ABD/GI: reports: no symptoms reported : reports: no symptoms reported <Aj Marques - Last Filed: 01/10/18 19:36> Cardiology Progress Note - Objective Vital Signs Temp Pulse Resp BP Pulse Ox 01/10/18 16:31 98.1 F 55 L 16 138/78 100 01/10/18 12:10 97.8 F 58 L 16 110/56 L 97 01/10/18 08:00 97.8 F 58 L 16 100 01/10/18 07:59 98 01/10/18 07:58 63 16 94 L Admit Weight 138 lb 12.8 oz Weight 138 lb 12.8 oz - Labs Result Diagrams: 01/10/18 04:43 01/10/18 04:43 Troponin/CKMB CK-MB (CK-2) 1.0 ng/mL (0-6.6) 01/09/18 10:26 Troponin I 0.068 ng/mL (< 0.028) H 01/09/18 18:07 - Assessment/Plan pt. seen and eval. I agree with the A/P by the TRANSPORT AIDE. she looks and feels better today. mild rales in left lung base. RRR. no edema.
[2018-01-10] MEDS: Atorvastatin Calcium 40 MG TAB PO SCH (20:27)
[2018-01-11 05:10] LABS: Anion Gap 12 mmol/L (10-20); BUN (Urea Nitrogen) 22 mg/dL (9.8-20.1); Calc. Creatinine Clearance 48 mL/min (70-130); Calcium 8.7 mg/dL (7.8-10.44); Carbon Dioxide 20 mmol/L (22-29); Chloride 115 mmol/L (98-107); Estimated GFR-MDRD 45; Glucose 146 mg/dL (70-105); Sodium 143 mmol/L (136-145)
[2018-01-11] MEDS: Piperacillin/Tazobactam 3.375 GM in Sodium Chloride 0.9% 100 ML IVPB SCH ×3 (05:13→17:53)
[2018-01-11 05:38] LABS: Band 9 % (5-11); Hemoglobin 8.1 g/dL (12.0-16.0); Lymphocytes 10 % (21-51); MDiff Complete? YES; Mean Corpuscular HGB CONC 34.7 g/dL (32.0-36.0); Mean Corpuscular Hemoglobin 32.1 pg (27.0-31.0); Mean Corpuscular Volume 92.6 fL (78.0-98.0); Mean Platelet Volume 11.5 fL (7.4-10.4); Monocytes 4 % (0-10); Neutrophil 77 % (42-75); PLT Morphology Comment Appears Decreased; Platelet Count 117 thou/uL (130-400); RBC Distribution Width 13.3 % (11.5-14.5); Red Blood Cell (RBC) Count 2.53 mill/uL (4.20-5.40)
[2018-01-11] MEDS: Mometasone/Formoterol 120 PUFF INHALER INH SCH ×2 (07:20→20:33)
--- NOTE | 2018-01-11 07:32 | CON ---
DATE OF CONSULTATION: 01/09/2018 DATE OF ADMISSION: 01/09/2018 INDICATION FOR CONSULTATION: A 62-year-old female with atrial fibrillation with rapid ventricular re sponse. HISTORY OF PRESENT ILLNESS: This is a very unfortunate 62-year-old female who has a history of metas tatic breast cancer, lung cancer, has been on chemotherapy. She lost considerable amount of weight. She has been not feeling well. She also has been falling due to most likely dehydration and orthost atic hypotension. She has a history of atrial fibrillation as well as COPD. She smoked in the past heavily, but stopped smoking. She apparently fell at home twice yesterday and then her called 911 to take her to the emergency room. When they arrived, she was found to be in atrial fibr illation. She was brought to the emergency room, I believe she has had a history of atrial fibrillat ion in the past and she is on chronic anticoagulation. She has been on diltiazem for his medication for atrial fibrillation. When she arrived in the emergency room, her heart rate was around 140 beats per minute. She has been given IV fluid volume replacement as well as her IV diltiazem and subseque ntly has converted back to sinus rhythm. At this time, she has no complaints from a cardiac standpoi nt. She has converted back to sinus rhythm around 5:00-6:00 this afternoon. It appears that she als o has pneumonia as well as probable sepsis and this most likely is the etiology of stress-induced fac tor for atrial fibrillation. As far as her past medical history, social history, family history, review of systems, allergies, med ications, please refer to the notes already dictated by the nurse practitioner. Also, the review of systems and physical examination also, please review these notes, I have evaluate d the patient and would agree with the assessment and plan. IMPRESSION: 1. Atrial fibrillation which has been intermittent in the past which has now converted back to sinus rhythm. We will continue the diltiazem, most likely it was associated with stress induced by her de hydration and the overall metastatic cancer. As far as her other multiple medical problems, these wi ll be dealt with by the primary care service. She has a metastatic breast cancer as well as lung can cer. 2. History of tobacco abuse. She no longer smokes. She stopped smoking about a year ago. We would be more than happy to continue to follow the patient with you, but at this time, she appears to be w ell controlled on the present medications. Should she have any further problems as far as her antiar rhythmic medications, which is actually mild in the form of diltiazem. We could consider switching t o a more potent antiarrhythmic medication. I am uncertain as to whether or not she has any underlyin g coronary artery disease. After that, she did also have underlying coronary disease with bypass rambo radha in the past. We could consider changing to medication such as Multaq, but at this time, we will continue to monitor her with the present medications.
[2018-01-11] MEDS: Cyanocobalamin (Vitamin B-12) 1,000 MCG TAB PO SCH (08:36)
[2018-01-11] MEDS: Multivitamin W/ Minerals 1 TAB PO SCH (08:36)
[2018-01-11] MEDS: Pregabalin 75 MG CAP PO SCH ×2 (08:36→20:40)
[2018-01-11] MEDS: Folic Acid 1 MG TAB PO SCH (08:36)
[2018-01-11] MEDS: Apixaban 2.5 MG TAB PO SCH ×2 (08:36→20:39)
[2018-01-11] MEDS: guaiFENesin ER 600 MG TAB PO SCH ×2 (08:36→20:40)
[2018-01-11] MEDS: tiZANidine HCl 4 MG TAB PO SCH ×2 (08:37→20:41)
[2018-01-11] MEDS: Saccharomyces boulardii 250 MG CAP PO SCH (08:37)
[2018-01-11] MEDS: Dextrose 5 %-0.45 % NaCl 1,000 ML IV SCH ×2 (08:40→17:53)
--- NOTE | 2018-01-11 14:03 | PDOC.PN ---
- Subjective Encounter Start Date: 01/11/18 Encounter Start Time: 14:01 Subjective: feels weak and tired & bothered by mouth sores -: no CP/palpitations/SOB -: declined HH or Rehab post DC - Objective Resuscitation Status: Resuscitation Status FULL:Full Resuscitation MAR Reviewed: Yes Vital Signs & Weight: Vital Signs (12 hours) Temp Pulse Resp BP BP Pulse Ox 01/11/18 11:15 97.7 F 49 L 16 114/59 L 100 01/11/18 08:00 97.7 F 59 L 18 99 01/11/18 07:36 97.7 F 59 L 18 98/52 L 99 01/11/18 07:20 62 16 98 01/11/18 03:25 98.1 F 48 L 18 136/63 99 Weight Admit Weight 138 lb 12.8 oz Weight 138 lb 12.8 oz Result Diagrams: 01/11/18 04:23 01/11/18 04:23 Additional Labs: Microbiology 01/09/18 12:56 Venous blood - Left Foot Blood Culture - Preliminary Specimen has been received and culture in progress. No Growth to date. 01/09/18 12:56 Venous blood - Left Foot Blood Culture - Preliminary NO GROWTH AT 48 HOURS 01/09/18 12:10 Port - Pending Blood Culture - Preliminary Specimen has been received and culture in progress. No Growth to date. 01/09/18 12:10 Port - Pending Blood Culture - Preliminary NO GROWTH AT 48 HOURS Laboratory Tests 01/09/18 01/09/18 01/09/18 10:26 12:06 12:06 Troponin I 0.084 H B-Natriuretic Peptide Free T4 0.91 Free T3 Less than 1.00 L TSH 3rd Generation 0.1889 L 01/09/18 01/09/18 01/09/18 14:39 14:39 18:07 Troponin I 0.091 H 0.068 H B-Natriuretic Peptide 603.3 H Free T4 Free T3 TSH 3rd Generation labs reviewed Radiology Reviewed by me: Yes (ECHO-mild diastolic dysfunction) Phys Exam - Physical Examination Constitutional: NAD pale,weak looking HEENT: moist MMs, sclera anicteric, oral pharynx no lesions no celia,small healing sores on tounge Neck: no nodes, no JVD, supple, full ROM Respiratory: no wheezing, no rales, no rhonchi, clear to auscultation bilateral Cardiovascular: RRR, no significant murmur Gastrointestinal: soft, non-tender, no distention, positive bowel sounds Musculoskeletal: no edema, pulses present Neurological: non-focal, normal sensation, moves all 4 limbs Psychiatric: normal affect, A&O x 3 Skin: no rash Dx/Plan (1) Sepsis with acute organ dysfunction Code(s): A41.9 - SEPSIS, UNSPECIFIED ORGANISM; R65.20 - SEVERE SEPSIS WITHOUT SEPTIC SHOCK Status: Acute (2) Community acquired bacterial pneumonia Code(s): J15.9 - UNSPECIFIED BACTERIAL PNEUMONIA Status: Acute (3) Acute kidney failure Status: Acute Comment: improving, due to prerenal and sepsis (4) COPD exacerbation Code(s): J44.1 - CHRONIC OBSTRUCTIVE PULMONARY DISEASE W (ACUTE) EXACERBATION Status: Acute Comment: improving (5) Demand ischemia Code(s): I24.8 - OTHER FORMS OF ACUTE ISCHEMIC HEART DISEASE Status: Acute (6) Stomatitis and mucositis Code(s): K12.1 - OTHER FORMS OF STOMATITIS; K12.30 - ORAL MUCOSITIS (ULCERATIVE) , UNSPECIFIED Status: Acute Comment: due to chemotherapy (7) Thrombocytopenia Code(s): D69.6 - THROMBOCYTOPENIA, UNSPECIFIED Status: Acute (8) Anemia of chronic disease Code(s): D63.8 - ANEMIA IN OTHER CHRONIC DISEASES CLASSIFIED ELSEWHERE Status : Chronic (9) Breast cancer Status: Chronic Comment: on chemotherapy (10) Atrial fibrillation with RVR Code(s): I48.91 - UNSPECIFIED ATRIAL FIBRILLATION Status: Resolved Comment: converted to sinus, she has PAF.on Anticoagulation (11) Chronic anticoagulation Code(s): Z79.01 - RESIDENTIAL (CURRENT) USE OF ANTICOAGULANTS Status: Chronic (12) Ex-smoker for less than 1 year Code(s): Z78.9 - OTHER SPECIFIED HEALTH STATUS Status: Chronic (13) Sepsis with hypotension Code(s): A41.9 - SEPSIS, UNSPECIFIED ORGANISM; I95.9 - HYPOTENSION, UNSPECIFIED Status: Acute Comment: hypotension resolved - Plan plan discussed w/ family, continue antibiotics, PT/OT, respiratory therapy, incentive spirometry, out of bed/ambulate, DVT proph w/SCDs add magic mouthwash w Nystatin.cont visocous lidocaine -: cont empiric IV ABx,clinically improving. -: cont eliquis and monitor H/H. -: cont IV steroids,change to PO on DC.Taper -: HR lower side.will hold CCB for now & defer to Cardiology for rate control * .NSR for now. * renal Fx improving. monitor. * am labs * Review of Systems - Review of Systems Constitutional: weakness, malaise. negative: fever, chills, sweats, other ENT: negative: Ear Pain, Ear Discharge, Nose Pain, Nose Discharge, Nose Congestion, Mouth Pain, Mouth Swelling, Throat Pain, Throat Swelling, Other Respiratory: negative: Cough, Dry, Shortness of Breath, Hemoptysis, SOB with Excertion, Pleuritic Pain, Sputum, Wheezing Cardiovascular: negative: chest pain, palpitations, orthopnea, paroxysmal nocturnal dyspnea, edema, light headedness, other Gastrointestinal: negative: Nausea, Vomiting, Abdominal Pain, Diarrhea, Constipation, Melena, Hematochezia, Other Genitourinary: negative: Dysuria, Frequency, Incontinence, Hematuria, Retention , Other Musculoskeletal: negative: Neck Pain, Shoulder Pain, Arm Pain, Back Pain, Hand Pain, Leg Pain, Foot Pain, Other Skin: negative: Rash, Lesions, Antoni, Bruising, Other Neurological: negative: Weakness, Numbness, Incoordination, Change in Speech, Confusion, Seizures, Other - Medications/Allergies Allergies/Adverse Reactions: Allergies Allergy/AdvReac Type Severity Reaction Status Date / Time isosorbide [From Imdur] Allergy Verified 01/09/18 21:06 Medications: Current Medications Acetaminophen (Tylenol) 650 mg PO Q4H PRN PRN Reason: Headache/Fever or Pain Acetaminophen/Codeine Phosphate (Tylenol #3) 1 tab PO Q4H PRN PRN Reason: Pain Hydrocodone Bitart/Acetaminophen ([place] 5/325) 1 tab PO Q4H PRN PRN Reason: Moderate Pain (4-6) Al Hydroxide/Mg Hydroxide (Maalox) 30 ml PO Q6H PRN PRN Reason: Heartburn or Indigestion Albuterol/Ipratropium (Duoneb) 3 ml NEB [id number]-CG PRN PRN Reason: SOB &/or Wheezing Apixaban (Eliquis) 2.5 mg PO BID VIKRAM Last Admin: 01/11/18 08:36 Dose: 2.5 mg Artificial Tears (Tears Naturale) 0 drop EA EYE PRN PRN PRN Reason: Dry Eyes Atorvastatin Calcium (Lipitor) 40 mg PO HS [facility] Last Admin: 01/10/18 20:27 Dose: 40 mg Clonidine (Catapres) 0.1 mg PO Q4H PRN PRN Reason: Systolic BP > 180 Al Hydroxide/Mg Hydroxide 60 ml/ Diphenhydramine HCl 150 mg / Lidocaine HCl 60 ml/Nystatin 6,000,000 units 0 ml SSW TID [facility] Cyanocobalamin (Vitamin B-12) 1,000 mcg PO DAILY [facility] Last Admin: 01/11/18 08:36 Dose: 1,000 mcg Folic Acid (Folvite) 1 mg PO DAILY [facility] Last Admin: 01/11/18 08:36 Dose: 1 mg Guaifenesin (Robitussin Sf) 200 mg PO Q4H PRN PRN Reason: Cough Guaifenesin (Mucinex) 600 mg PO Q12HR [facility] Last Admin: 01/11/18 08:36 Dose: 600 mg Levofloxacin 500 mg/ Device 100 mls @ 100 mls/hr IVPB Q24HR [facility] Last Admin: 01/10/18 16:37 Dose: 100 mls Piperacillin Sod/Tazobactam (Sod 3.375 gm/ Sodium Chloride) 100 mls @ 200 mls/ hr IVPB Q6HR [facility] Last Admin: 01/11/18 12:28 Dose: 100 mls Dextrose/Sodium Chloride (D5 1/2 Ns) 1,000 mls @ 50 mls/hr IV .Q20H [facility] Last Admin: 01/11/18 08:40 Dose: Not Given Diltiazem HCl 125 mg/ Sodium (Chloride) 125 mls @ 5 mls/hr IVPB INF PRN; Protocol; 5 MG/HR PRN Reason: for afib with RVR >110 Iron/Minerals/Multivitamins (Theragran M) 1 tab PO DAILY [facility] Last Admin: 01/11/18 08:36 Dose: 1 tab Lidocaine HCl (Xylocaine 2% Viscous) 15 ml SSW Q6H PRN PRN Reason: Mouth Irritation Last Admin: 01/10/18 07:37 Dose: 15 ml Loperamide HCl (Imodium) 2 mg PO PRN PRN PRN Reason: Diarrhea/Loose Stools Loratadine (Claritin) 10 mg PO DAILYPRN PRN PRN Reason: Sinus Symptoms Magnesium Hydroxide (Milk Of Magnesium) 30 ml PO DAILYPRN PRN PRN Reason: Constipation Methylprednisolone Sodium Succinate (Solu-Medrol) 20 mg IVP Q8HR [facility] Last Admin: 01/11/18 05:21 Dose: 20 mg Mineral Oil/White Petrolatum (Eucerin Cream) 0 gm TOP BIDPRN PRN PRN Reason: Dry Skin Mometasone Furoate/Formoterol Fumar (Dulera 200 Mcg/5 Mcg Inhaler) 2 puff INH BID-RT [facility] Last Admin: 01/11/18 07:20 Dose: 2 puff Ondansetron HCl (Zofran Odt) 4 mg PO Q6H PRN PRN Reason: Nausea/Vomiting Ondansetron HCl (Zofran) 4 mg IVP Q6H PRN PRN Reason: Nausea/Vomiting Pantoprazole Sodium (Protonix) 40 mg PO DAILY [facility] Last Admin: 01/11/18 08:36 Dose: 40 mg Phenol (Chloraseptic [place] 180 Ml Bot) 0 ml PO PRN PRN PRN Reason: Sore Throat Pregabalin (Lyrica) 225 mg PO BID [facility] Last Admin: 01/11/18 08:36 Dose: 225 mg Saccharomyces Boulardii (Florastor) 250 mg PO DAILY [facility] Last Admin: 01/11/18 08:37 Dose: 250 mg Senna (Senokot) 2 tab PO HSPRN PRN PRN Reason: Constipation Sodium Chloride ([place] Nasal [place] 0.65%) 0 ml EA NARE QIDPRN PRN PRN Reason: Nasal Congestion Sodium Chloride (Flush - Normal Saline) 10 ml IVF Q12HR [facility] Last Admin: 01/11/18 08:35 Dose: Not Given Sodium Chloride (Flush - Normal Saline) 10 ml IVF PRN PRN PRN Reason: Saline Flush Tizanidine HCl (Zanaflex) 4 mg PO BID [facility] Last Admin: 01/11/18 08:37 Dose: 4 mg Zolpidem Tartrate (Ambien) 5 mg PO HSPRN PRN PRN Reason: Insomnia
--- NOTE | 2018-01-11 14:10 | PDOC.CTH ---
<Mleody Ahmadi - Last Filed: 01/11/18 14:12> Cardiology Progress Note - Subjective The pt seen and examined. No overnight events. No cardiac complaints. She had mild dizziness today during taking shower. - Objective Vital Signs Temp Pulse Resp BP BP Pulse Ox 01/11/18 11:15 97.7 F 49 L 16 114/59 L 100 01/11/18 08:00 97.7 F 59 L 18 99 01/11/18 07:36 97.7 F 59 L 18 98/52 L 99 01/11/18 07:20 62 16 98 01/11/18 03:25 98.1 F 48 L 18 136/63 99 Admit Weight 138 lb 12.8 oz Weight 138 lb 12.8 oz - Physical Examination General/Neuro: alert & oriented x3 Neck: no JVD present Lungs: other: (diminished at bases) Heart: RRR Abdomen: soft Extremities: other: - Telemetry Telemetry Rhythm: SR - Labs Result Diagrams: 01/11/18 04:23 01/11/18 04:23 Troponin/CKMB CK-MB (CK-2) 1.0 ng/mL (0-6.6) 01/09/18 10:26 Troponin I 0.068 ng/mL (< 0.028) H 01/09/18 18:07 - Assessment/Plan 1. Afib with RVR - Converted back to SR at 1717 on 01/09/18; Remains in SR. On Eliquis 2.5mg BID; Will resume Diltiazem with dosage of 120 mg; 2. Dizziness - stable with stable BP. 3. PNA - on IV antibiotic; managed by PCP 4. hx of Lt lung and stage 3 Lt breast ca - 5. HTN - stable 6. Hyperlipidemia - On statin 7. Anemia - Hgb 8.1 today from 8.6 yesterday MAR reviewed Review of Systems - Review of Systems Constitutional: reports: weakness EENTM: reports: no symptoms reported Respiratory: reports: no symptoms reported Cardiac (ROS): reports: no symptoms reported ABD/GI: reports: no symptoms reported : reports: no symptoms reported <Aj Marques - Last Filed: 01/11/18 18:54> Cardiology Progress Note - Objective Vital Signs Temp Pulse Resp BP BP Pulse Ox 01/11/18 15:48 98.6 F 53 L 18 137/63 99 01/11/18 11:15 97.7 F 49 L 16 114/59 L 100 01/11/18 08:00 97.7 F 59 L 18 99 01/11/18 07:36 97.7 F 59 L 18 98/52 L 99 01/11/18 07:20 62 16 98 Admit Weight 138 lb 12.8 oz Weight 138 lb 12.8 oz - Labs Result Diagrams: 01/11/18 04:23 01/11/18 04:23 Troponin/CKMB CK-MB (CK-2) 1.0 ng/mL (0-6.6) 01/09/18 10:26 Troponin I 0.068 ng/mL (< 0.028) H 01/09/18 18:07 - Assessment/Plan Pt. seen and eval. I agree with the A/P by the [employer] MACHINE OPERATOR>. She is trying to eat a little today. Chest: left basilar minimal rales. RRR. Cardiac status stable. Maintaining NSR. Decreased dose of dilt. due to hypotension.
[2018-01-11] MEDS: Aluminum & Magnesium Hydroxide 60 ML, diphenhydrAMINE 150 MG, Lidocaine 2% Viscous Solu... SSW SCH ×2 (15:46→20:48)
[2018-01-11] MEDS: Atorvastatin Calcium 40 MG TAB PO SCH (20:39)
[2018-01-12] MEDS: Piperacillin/Tazobactam 3.375 GM in Sodium Chloride 0.9% 100 ML IVPB SCH ×3 (00:36→12:16)
[2018-01-12] MEDS: Dextrose 5 %-0.45 % NaCl 1,000 ML IV SCH (04:00)
[2018-01-12 05:01] LABS: #Lymphocytes 0.6 thou/uL (1.20-3.40); #Monocytes 0.5 thou/uL (0.11-0.59); #Neutrophils 9.7 thou/uL (1.40-6.50); %Basophils 0.4 % (0.0-1.0); %Eosinophils 0.4 % (0.0-10.0); %Lymphocytes 5.1 % (21.0-51.0); %Monocytes 4.2 % (0.0-10.0); %Neutrophils 89.8 % (42.0-75.0); Hemoglobin 8.5 g/dL (12.0-16.0); Mean Corpuscular HGB CONC 33.2 g/dL (32.0-36.0); Mean Corpuscular Hemoglobin 31.2 pg (27.0-31.0); Mean Corpuscular Volume 94.1 fL (78.0-98.0); Platelet Count 125 thou/uL (130-400); RBC Distribution Width 13.4 % (11.5-14.5); Red Blood Cell (RBC) Count 2.72 mill/uL (4.20-5.40); White Blood Cell (WBC) Count 10.8 thou/uL (4.8-10.8)
[2018-01-12 05:09] LABS: Anion Gap 12 mmol/L (10-20); BUN (Urea Nitrogen) 21 mg/dL (9.8-20.1); Calc. Creatinine Clearance 51 mL/min (70-130); Carbon Dioxide 22 mmol/L (22-29); Chloride 113 mmol/L (98-107); Estimated GFR-MDRD 47; Glucose 155 mg/dL (70-105); Potassium 4.1 mmol/L (3.5-5.1); Sodium 143 mmol/L (136-145)
[2018-01-12] MEDS: Mometasone/Formoterol 120 PUFF INHALER INH SCH (07:07)
[2018-01-12] MEDS: Folic Acid 1 MG TAB PO SCH (09:22)
[2018-01-12] MEDS: Apixaban 2.5 MG TAB PO SCH (09:22)
[2018-01-12] MEDS: Cyanocobalamin (Vitamin B-12) 1,000 MCG TAB PO SCH (09:22)
[2018-01-12] MEDS: Saccharomyces boulardii 250 MG CAP PO SCH (09:23)
[2018-01-12] MEDS: tiZANidine HCl 4 MG TAB PO SCH (09:23)
[2018-01-12] MEDS: guaiFENesin ER 600 MG TAB PO SCH (09:23)
[2018-01-12] MEDS: Pregabalin 75 MG CAP PO SCH (09:23)
[2018-01-12] MEDS: Multivitamin W/ Minerals 1 TAB PO SCH (09:23)
--- NOTE | 2018-01-12 10:23 | PDOC.CTH ---
Cardiology Progress Note - Subjective The pt seen and examined. No overnight events. No cardiac complaints. She felt intermittent light dizziness when she was up to bathroom. - Objective Vital Signs Temp Pulse Resp BP BP Pulse Ox 01/12/18 07:51 98 F 53 L 18 141/63 H 96 01/12/18 07:09 100 01/12/18 07:07 52 L 18 100 01/12/18 04:00 97.6 F 42 L 18 168/74 H 100 Admit Weight 138 lb 12.8 oz Weight 138 lb 12.8 oz 01/11/18 01/12/18 01/13/18 06:59 06:59 06:59 Intake Total 1080 Output Total 250 Balance 830 - Physical Examination General/Neuro: alert & oriented x3 Neck: no JVD present Lungs: CTA Heart: RRR Abdomen: soft Extremities: other: (No edema) - Telemetry Telemetry Rhythm: SR 60s - Labs Result Diagrams: 01/12/18 04:22 01/12/18 04:22 Troponin/CKMB CK-MB (CK-2) 1.0 ng/mL (0-6.6) 01/09/18 10:26 Troponin I 0.068 ng/mL (< 0.028) H 01/09/18 18:07 - Assessment/Plan 1. Afib with RVR - Converted back to SR at 1717 on 01/09/18; Remains in SR. On Eliquis 2.5mg BID; HR was down to 42 around 0400 today. Since the pt was asymptomatic, cont. Diltiazem 120 mg qd for now. 2. Dizziness - stable with stable BP. 3. PNA - on IV antibiotic; managed by PCP 4. hx of Lt lung and stage 3 Lt breast ca - 5. HTN - stable 6. Hyperlipidemia - On statin 7. Anemia - Hgb 8.6 today from 8.1 yesterday 8. REAGAN - improving MAR reviewed * Since the pt has been in SR on 01/09/18 and stable, we would like to sign off. Please feel free to contact us. Review of Systems - Review of Systems Constitutional: reports: weakness EENTM: reports: no symptoms reported Respiratory: reports: no symptoms reported Cardiac (ROS): reports: no symptoms reported ABD/GI: reports: no symptoms reported : reports: no symptoms reported Musculoskeletal: reports: no symptoms reported
[2018-01-12] MEDS: Aluminum & Magnesium Hydroxide 60 ML, diphenhydrAMINE 150 MG, Lidocaine 2% Viscous Solu... SSW SCH (10:57)
[2018-01-12 12:31] VITALS: BP 104/51; TEMP 97.8
--- NOTE | 2018-01-13 09:00 | DIS ---
DATE OF ADMISSION: 01/09/2018 DATE OF DISCHARGE: 01/12/2018 CONDITION AT THE TIME OF DISCHARGE: Stable and improved. DISCHARGE DISPOSITION: Home. DISCHARGE DIAGNOSES: 1. Sepsis with acute organ dysfunction. 2. Community-acquired pneumonia. 3. Acute kidney failure. 4. Chronic obstructive pulmonary disease exacerbation. 5. Demand ischemia. 6. Stomatitis and mucositis secondary to chemotherapy. 7. Thrombocytopenia secondary to ongoing chemotherapy. 8. Anemia of chronic kidney disease. 9. Breast cancer, on chemotherapy. 10. Atrial fibrillation with rapid ventricular response, now sinus rhythm. 11. Chronic anticoagulation. 12. Septic shock, which was resolved. DISCHARGE MEDICATIONS: New medications: Eliquis 2.5 mg p.o. b.i.d., this has been changed from 5 mg daily; Tessalon Perles as needed q.i.d.; diltiazem 120 mg daily, this has been reduced from 240 mg d aily; Medrol Dosepak; Viscous lidocaine solution swish and swallow as needed; and Magic Mouthwash q.i .d. as needed; levofloxacin 500 mg daily for 7 more days. Resume home medications as follows: Atorvastatin 40 mg daily, Lyrica 225 mg p.o. b.i.d., omeprazole 20 mg daily, tizanidine 4 mg b.i.d., Combivent q.i.d., nitroglycerin sublingual as needed, aspirin 81 mg daily, Symbicort 160/4.5 b.i.d., [place] p.r.n., Tylenol with Codeine q.4 hours p.r.n., Chantix 1 m g daily. PRIMARY ONCOLOGIST: Den Mejia MD PRIMARY CARE PHYSICIAN: Urbano Burns MD IN-HOUSE CONSULTATION: Cardiology, Dr. Marques. PROCEDURES DONE IN THE HOSPITAL: 1. CT scan of the brain upon presentation, which is negative for any acute intracranial abnormality. 2. Transthoracic echocardiogram, which shows preserved ejection fraction at 50%-55% and grade 1/3 di astolic dysfunction, mild mitral and tricuspid regurgitation. HOSPITAL COURSE: Ms. Duncan is a very pleasant 62-year-old female with known history of breast canc er, currently on chemotherapy; and history of lung cancer in the past as well; as well as history of chronic atrial fibrillation, on chronic anticoagulation; COPD; hypertension; dyslipidemia; and periph eral neuropathy who presented to the emergency room with complaints of generalized weakness, malaise, poor appetite, weight loss, and sore mouth since she has started her chemotherapy for stage III [facility] [address] cancer. She had complaints of productive cough as well on presentation. The reason her b rought her to the hospital was that the patient while walking to the bathroom in the middle of night collapsed. In the emergency room, she was found to be hypotensive as well as in atrial fibrillation with RVR with a heart rate of 140. She was afebrile. She was given IV fluid. Cardizem bolus and Ca rdizem drip was started. She was given empiric antibiotics and was admitted to telemetry floor. Ple ase see admission history and physical for further detail. She was found to have left lower lobe pne umonia upon presentation in the chest x-ray. She had leukocytosis with a WBC of 14.5 and elevated cr eatinine with acute kidney failure with a creatinine of 1.58, BUN of 34. She was also found to have mild chronic obstructive pulmonary disease exacerbation and was started on Solu-Medrol, Dulera, and D uoNeb, and empiric oxygen therapy. The patient was seen by Cardiology, Dr. Marques. She was tapered off Cardizem drip and was started on o ral Cardizem again. Her Eliquis was changed from 5 mg daily to 2.5 mg p.o. b.i.d. She had definitiv e rate control with these measures and actually changed back to normal sinus rhythm quickly. She did have some episodes of bradycardia, which was sinus in nature. Her Cardizem was reduced from 240 mg to 120 mg daily. She had significant improvement in her clinical signs and symptoms of pneumonia and shortness of rohit th and sepsis with IV antibiotic, IV fluids, IV steroids, as well as nebulizers and Dulera. Eventual ly, she was back to her baseline and was eager to go home this morning. She declined any help with [facility] at this time. She will follow up with Dr. Marques, primary care physician; and her primary o ncologist, Dr. Den Mejia, in the outpatient setting. Her mucositis was treated with viscous lidocaine and Magic Mouthwash while she was here, which somewh at helped. She was seen and examined prior to discharge. PHYSICAL EXAMINATION: This morning, VITAL SIGNS: Temperature 97.8, pulse of 62, respirations 18, saturating 99% on room air, blood press ure 104/51. GENERAL: No acute distress, awake, alert, oriented x3. She does appear pale, weak, and tired, but i s eager to go home. CHEST: Clear to auscultation without any wheezing, rales, or rhonchi. Rhythm is regular without any murmur, rubs, or gallops. ABDOMEN: Soft, nontender, nondistended with positive bowel sounds. LABORATORY DATA: Blood culture, no growth until date. CBC shows WBC of 10.8, platelet count of 125, hemoglobin 8.5. Serum chemistries showed BUN 21, creat inine 1.17. The patient is instructed to keep all of her followup appointments and stay hydrated and take her med ications as prescribed. Discharge plan was discussed with the patient and her family, who are presen t at bedside. They verbalized understanding. Total time spent in the discharge of this patient, 35 minutes.
--- NOTE | 2018-01-14 11:29 | EKG ---
Test Reason : Blood Pressure : / mmHG Vent. Rate : 118 BPM Atrial Rate : 091 BPM P-R Int : 000 ms QRS Dur : 088 ms QT Int : 342 ms P-R-T Axes : 000 052 060 degrees QTc Int : 479 ms Atrial fibrillation with rapid ventricular response Nonspecific ST abnormality Abnormal ECG Confirmed by JESSE BROWNLEE DO ([id number]), production editor FRANCHESCA MICHAEL ([id number] on 01/14/2018 11:28:47 AM Referred By: Confirmed By:JESSE BROWNLEE DO
== END 2018-01-12 14:08 | disposition home or self-care (01) | DRG 871 ==
LOC: ERS 10:02 → 2NO 13:03
PROVIDERS: ADMIT Internal Medicine; ATTEND Internal Medicine
DX: A41.9 Sepsis, unspecified organism (principal); J18.9 Pneumonia, unspecified organism; R65.21 Severe sepsis with septic shock; N17.9 Acute kidney failure, unspecified; J44.1 Chronic obstructive pulmonary disease with (acute) exacerbation; I24.8 Other forms of acute ischemic heart disease; E87.2 Acidosis; E44.0 Moderate protein-calorie malnutrition; K12.1 Other forms of stomatitis; K12.31 Oral mucositis (ulcerative) due to antineoplastic therapy; T45.1X5A Adverse effect of antineoplastic and immunosuppressive drugs, initial encounter; Y92.9 Unspecified place or not applicable; D69.59 Other secondary thrombocytopenia; N18.9 Chronic kidney disease, unspecified; D63.1 Anemia in chronic kidney disease; C50.919 Malignant neoplasm of unspecified site of unspecified female breast; Z79.01 Long term (current) use of anticoagulants; Z85.118 Personal history of other malignant neoplasm of bronchus and lung; I10 Essential (primary) hypertension; G62.9 Polyneuropathy, unspecified; E78.5 Hyperlipidemia, unspecified; I48.0 Paroxysmal atrial fibrillation; E86.0 Dehydration; K21.9 Gastro-esophageal reflux disease without esophagitis; Z68.21 Body mass index [BMI] 21.0-21.9, adult
CPT/HCPCS: 36415; 70450; 71045; 80048; 80053; 81001; 82533; 82553; 83605; 83880; 84439; 84443; 84481; 84484; 85025; 87040; 93005; 93306; 94760; 96365; 96366; 96375; A4216; J1160; J1642; J1956; J2543; J2920; J7042; J7050